=== PATIENT | female | born 1930 | race Caucasian/White ===

== ENCOUNTER → 2016-02-23 | Outpatient (CLI) | payer MEDICARE, MEDICAID ==
[~2016-02-23] MED LIST: AMLO10TA2 PO; ANAS1TAB PO; ATEN100T PO; CEFU1TAB20 PO; ERGO1CAP10 PO; IBUP200C PO; ISOS30TA3 PO; MEDR4PAK PO; POTA10TA15 PO; VALS1TAB65 PO; WARF-20 PO; WARF-23 PO
[2016-02-23 09:58] LABS: AUTOMATED NEUTROPHIL # 5.8 TH/MM3 (1.8-7.7); BASOPHIL % 0.5 % (0.0-2.0); EOSINOPHIL # 0.3 TH/MM3 (0-0.4); EOSINOPHIL % 3.7 % (0.0-4.0); HEMATOCRIT 39.3 % (35.0-46.0); HEMO FLAGS DIFF FINAL; LYMPH % 17.2 % (9.0-44.0); LYMPHOCYTE # 1.5 TH/MM3 (1.0-4.8); MEAN CELL VOLUME 88.1 FL (80.0-100.0); MEAN CORPUSCULAR HEMOGLOBIN 28.8 PG (27.0-34.0); MEAN CORPUSCULAR HGB CONC 32.7 % (32.0-36.0); MONO % 9.4 % (0.0-8.0); NEUT % 69.2 % (16.0-70.0); PLATELET COUNT 206 TH/MM3 (150-450); RED BLOOD COUNT 4.46 MIL/MM3 (4.00-5.30); RED CELL DISTRIBUTION WIDTH 14.9 % (11.6-17.2); WHITE BLOOD COUNT 8.4 TH/MM3 (4.0-11.0)
== END ==
LOC: CPRE 08:40
PROVIDERS: ATTEND Surgery
DX: Z01.812 Encounter for preprocedural laboratory examination (principal); C50.912 Malignant neoplasm of unspecified site of left female breast
CPT/HCPCS: 36415; 85025

== ENCOUNTER → 2016-03-02 | Day surgery (SDC) | payer MEDICARE, OTHER ==
--- NOTE | 2016-02-24 11:58 | MH ---
cc: EDDA SHER DATE OF ADMISSION 02/23/2016 [facility] #[id number] PRINCIPAL DIAGNOSIS Multifocal left breast cancer ATTENDING PHYSICIAN Edda Sher MD HISTORY OF PRESENT ILLNESS The patient is an 85-year-old female with multiple medical problems noted to have an abnormal bilateral diagnostic mammogram at [facility] on January 04, 2016. This was performed for a 2-month history of left bloody nipple discharge and left breast ultrasound demonstrated a 1.2 cm left breast mass at 2 o'clock 7 cm from the nipple and a 6 mm mass at 11 o'clock. The 2 o'clock lesion was classified as BI-RADS five and ultrasound-guided core biopsy demonstrated moderately differentiated invasive ductal carcinoma corresponding to a palpable mass at 2 o'clock which was 1.5 cm. The 6 mm mass at 11 o'clock was not well seen by office imaging and the areolar skin rash was biopsied, but this was negative. She subsequently had a breast MRI on February 03 which demonstrated the known malignancy which was 1.3 cm at 2 o'clock 7 cm from the nipple. There was a second ill-defined enhancing area at 11 o'clock which was 8 mm. There was a third enhancing focus in the lower outer quadrant which was 7 mm and this was indeterminate. There was an ill-defined enhancing focus in the upper outer right breast which was 9 mm and a second smaller enhancing density in the central right breast which was 5 mm. Ultrasound of the right breast was recommended, but the patient did not wish to pursue further workup. She opted for left mastectomy and sentinel lymph node biopsy and now presents for the procedure. Final interpretation of her right breast ultrasound demonstrated no dominant masses with a 4 mm nodular density, but nothing corresponding to the MR findings. MR guided biopsy was recommended but the patient declined. MEDICAL PROBLEMS Include: 1. Coronary artery disease 2. History of congestive heart failure 3. History of pulmonary embolus and deep venous thrombosis. 4. She also has hypertension and a history of a myocardial infarction requiring multiple stents, as well as three-vessel bypass in the distant past. 5. She has had what was described as an mini stroke some years ago, but has no neurologic sequelae. Preoperative cardiac clearance was recommended and the patient was seen by Dr. Crowell who considered her to be low to intermediate risk. PAST SURGERIES Include: 1. Coronary artery bypass graft in 1996 2. Carotid endarterectomy 3. Multiple coronary artery stents 4. Peripheral vascular femoral vessel stents 5. Hysterectomy and bilateral salpingo-oophorectomy in 1962. CURRENT MEDICATIONS 1. Warfarin 4 mg 5 days a week and 4.5 mg 2 days a week 2. Amlodipine 10 mg daily 3. Valsartan 160 mg daily 4. Atenolol 50 mg daily 5. Potassium 10 mg daily 6. Isosorbide 30 mg daily ALLERGIES SHE IS ALLERGIC TO AMOXICILLIN WHICH IS ASSOCIATED WITH A RASH AND SHE HAS ADVERSE DRUG REACTION TO LABETALOL. REPRODUCTIVE HISTORY G4, P4. Menarche age 14, first child age 19, surgical menopause age 32. She has never taken hormone replacement. FAMILY HISTORY Significant for breast cancer in her sister in her early 50s with a second breast cancer which was postmenopausal and she subsequently of metastatic disease. REVIEW OF SYSTEMS A 12-point review of systems was significant for cardiac symptoms and lower extremity edema and shortness of breath with exertion. PHYSICAL EXAMINATION She was 5.6 and weighed 150 pounds with a BMI of 24.4. Blood pressure was 133/83, temperature 97.8, heart rate 104, respirations 16. HEENT: Exam was significant for being edentulous. NECK: The neck was supple with no thyromegaly or cervical adenopathy. She did have mobile left axillary adenopathy. CHEST: Clear throughout. CARDIAC: Exam revealed a 3/6 systolic harsh murmur and irregular heartbeat. BREASTS: Exam revealed fibrocystic changes and asymmetry with the left breast being larger than the right. There was bloody nipple discharge on the left side and a 1.5 cm two o'clock mass 7 cm from the nipple. 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 ABDOMEN: The abdomen was without masses or tenderness and there was a low midline scar. EXTREMITIES: The remainder of her exam was significant for 1+ peripheral edema. IMPRESSION Ms. Hou has clinical stage II left breast cancer with mobile adenopathy and probable multifocal disease. She has opted for breast MRI and despite some indeterminate findings by MR in the right breast, she declined further workup. She will stop her Coumadin prior to surgery and understands the risks and benefits of the procedure. Edda Sher MD CEW/SANDY /11:09 AM /11:46 AM FLORA
[~2016-03-02] VITALS: Ht 167.6 cm; Wt 69.5 kg
[~2016-03-02] MED LIST changes: +ACETAMINOPHEN 1000 MG/100 ML VIAL IV ONE; +ACETAMINOPHEN/HYDROcodone 325 MG/5 MG TAB ONE; +BUPIVACAINE/EPINEPHRINE 0.5% PF 30 ML VIAL ONE; +CLINDAMYCIN PHOS 900 MG/6 ML VIAL ONE; +ISOSULFAN BLUE 50 MG/5 ML VIAL SQ ONE; +LACTATED RINGER'S 1000 ML INJ 1,000 ML ONE; +LIDOCAINE HCL 1% 20 ML VIAL ONE; +METHYLENE BLUE 100 MG/10 ML VIAL ONE; +MIDAZOLAM HCL 2 MG/2 ML VIAL ONE; +ONDANSETRON HCL 4 MG/2 ML VIAL IV PUSH ONE; +ONDANSETRON HCL 4 MG/2 ML VIAL ONE; +PROPOFOL 200 MG/20 ML AMP IV ONE; +SODIUM CHLORIDE 0.9% 20 ML VIAL ONE; +SODIUM CHLORIDE 0.9% INJ 100 ML ONE; -WARF-23 PO; +fentaNYL CITRATE 250 MCG/5 ML AMP ONE
[2016-03-02 07:33] VITALS: BP 115/71; PULSE 75; RESP 20; TEMP 98.6; O2SAT 99
--- NOTE | 2016-03-02 10:54 | RADRPT ---
EXAM DATE/TIME: 03/02/2016 08:35 [facility] COMPARISON: No previous studies available for comparison. INDICATIONS : Breast cancer. MEDICAL HISTORY : Hypertension. Deep venous thrombosis. Breast cancer. SURGICAL HISTORY : Tubal ligation. Hysterectomy. ENCOUNTER: Initial ACUITY: 1 day PAIN SCORE: 2/10 LOCATION: Left breast. AREA EVALUATED: Left breast, upper quadrant; at 2 o'closk Radiopharmaceutical dose: 1 mCi Tc99m [place] colloid FINDINGS: Breast ultrasound was performed prior to lymphoscintigraphy. Subcutaneous injection was made in close proximity to the biopsy-proven breast carcinoma at 2: 00 7 cm from the left nipple. Subdermal injection was made in the same quadrant in the periareolar ti ssues. Delayed imaging was not requested by Dr. Trujillo. CONCLUSION: Successful ultrasound-guided left breast lymphoscintigraphy injections. Edis Estevez MD on March 02, 2016 at 10:51 Board Certified Radiologist. This report was verified electronically.
[2016-03-02 11:36] LABS: PROTHROMBIN TIME - PATIENT 10.5 SEC (9.8-11.6)
[2016-03-02 16:30] VITALS: BP 107/78; PULSE 106; RESP 16; TEMP 97.7; O2SAT 98
--- NOTE | 2016-03-02 20:04 | MP ---
cc: PHIL SHER DATE OF SURGERY 03/02/16 PRINCIPAL DIAGNOSIS Multifocal left breast cancer POSTOPERATIVE DIAGNOSIS Multifocal left breast cancer PROCEDURE PERFORMED Left mastectomy and left axillary sentinel lymph node biopsy with left axillary dissection. SURGEON Mac Sher MD ANESTHESIA General via LMA device. INDICATION The patient is an 85-year-old female with multifocal left breast cancer who now presents for definitive surgical therapy. FINDINGS AT SURGERY Bloody nipple discharge was noted from the left nipple and there was palpable abnormality at 11 o'clock and a second abnormality at 2 o'clock 5 cm from the nipple which did appear to involve the skin. The skin at 2 o'clock was included with the mastectomy specimen. Two sentinel lymph nodes were removed. #1 was not blue and had a count of 25 and #2 was not blue but was suspicious and had a count of one. The first sentinel lymph node was positive by touch prep for metastatic disease. PROCEDURE IN DETAIL After informed consent was obtained and site verification was performed, the patient was brought to the radiology suite where she underwent peritumoral radionuclide injection. She was then brought to the major operating room where she underwent general anesthesia via an LMA device. She was given a single dose of IV clindamycin due to PENICILLIN ALLERGY and sequential compression hose were placed. Three mL of half-strength Lymphazurin were injected in the subareolar left breast and a 5-minute massage was performed. The left breast and arm were then prepped and draped in sterile fashion. 180 mL of tumescent solution mixed with 30 mL of 0.5% Marcaine with epinephrine were then infiltrated circumferentially around the left breast in the plane between the subcutaneous fat and anterior breast fascia. Sharp dissection was then performed in this same plane superiorly to the clavicle, medially to the parasternal area, laterally to the axilla, and inferiorly to the anterior rectus sheath. The breast was then dissected off the pectoralis muscle using electrocautery and the breast was then amputated in the axilla. The specimen was oriented with the skin anterior, one short suture superior, and one long suture lateral. The specimen was sent for permanent pathologic evaluation after being weighed and it was 535 grams. Attention was then turned to the left axilla where there were some palpable low level I lymph nodes. These were circumferentially dissected free from surrounding structures using the harmonic scalpel. [place] lymph node #1 was high in level I and this had a count of 25 and was not blue. The second low level I lymph node had a count of one and touch prep of these two lymph nodes was positive. Some adjacent lymph nodes were also removed using the harmonic scalpel and none of these had any radioactive count. Some additional mid level I lymph nodes were dissected free from surrounding structures using the harmonic scalpel and care was taken to preserve the medial pectoral, the thoracodorsal, and the long thoracic neurovascular bundles as well as the axillary vein. Good hemostasis was noted and a stab wound was created along the anterior axillary line. A drain was placed along the chest wall and secured to the skin with a 3-0 nylon suture. The wound was then closed using interrupted 3-0 Vicryl subcutaneous sutures and a 4-0 Monocryl subcuticular suture. Steri-Strips and a sterile dressing were applied. The patient tolerated the procedure well with an estimated blood loss if 50 mL and she was extubated in the operating room and brought to the recovery room in good condition. All sponge and needle counts were correct at the conclusion of the case. MD CALDERON Amaro/ /2:42 PM /7:54 PM
--- NOTE | 2016-03-03 09:21 | RADRPT ---
EXAM DATE/TIME: 03/02/2016 08:35 [facility] COMPARISON: No previous studies available for comparison. EXTERNAL COMPARISON : [facility], US Breast, Right, February 09, 2016 , MRI Breast, Bilateral, February 04, 2016, US Breast, Left, January 04, 2016. INDICATIONS : Left breast cancer. DOSE: 1.0 mCi Tc99m Sulfur Colloid subcutaneous and subdermal INJECTION SITE: Left Breast MEDICAL HISTORY : Carcinoma, breast. Atrial fibrillation. SURGICAL HISTORY : Tubal ligation. Hysterectomy. Appendectomy. Carotid endartectomy. ENCOUNTER: Initial ACUITY: 4 - 6 months PAIN SCALE: 3/10 LOCATION: Left Breast. TECHNIQUE: Injection(s) of sulfur colloid was performed under sonographic guidance. Static imaging was obtained .. FINDINGS: Imaging confirms activity at the injection site. No sentinel node uptake is confirmed at 30 minutes. CONCLUSION: No sentinel node uptake confirmed at 30 minutes. Edis Estevez MD on March 03, 2016 at 9:11 Board Certified Radiologist. This report was verified electronically.
== END | disposition home or self-care (01) ==
LOC: CSDC 06:50 → EDUNIT# 08:00
PROVIDERS: ATTEND Surgery
DX: C50.812 Malignant neoplasm of overlapping sites of left female breast (principal); C77.3 Secondary and unspecified malignant neoplasm of axilla and upper limb lymph nodes; I50.9 Heart failure, unspecified; E55.9 Vitamin D deficiency, unspecified; I12.9 Hypertensive chronic kidney disease with stage 1 through stage 4 chronic kidney disease, or unspecified chronic kidney disease; N18.3 Chronic kidney disease, stage 3 (moderate); I48.2 Chronic atrial fibrillation; Z86.718 Personal history of other venous thrombosis and embolism; Z79.01 Long term (current) use of anticoagulants; Z01.818 Encounter for other preprocedural examination
CPT/HCPCS: 00400; 19303; 36415; 76642; 78195; 85610; 88307; 88309; 88333; A9541; J0131; J2250; J2405; J3010; J7120; Q9968

== ENCOUNTER 2016-04-15 06:23 | Emergency (ER) | payer MEDICARE, MEDICAID ==
[2016-04-15] VITALS (7 sets, daily range): BP systolic 137–166; BP diastolic 67–89; PULSE 99–118; RESP 18–22; TEMP 98.7; O2SAT 90–99
[~2016-04-15] VITALS: Ht 160 cm; Wt 68.0 kg
[~2016-04-15 06:23] MED LIST changes: -ACETAMINOPHEN 1000 MG/100 ML VIAL IV ONE; -ACETAMINOPHEN/HYDROcodone 325 MG/5 MG TAB ONE; -ANAS1TAB PO; -BUPIVACAINE/EPINEPHRINE 0.5% PF 30 ML VIAL ONE; -CEFU1TAB20 PO; -CLINDAMYCIN PHOS 900 MG/6 ML VIAL ONE; -ISOSULFAN BLUE 50 MG/5 ML VIAL SQ ONE; -LACTATED RINGER'S 1000 ML INJ 1,000 ML ONE; -LIDOCAINE HCL 1% 20 ML VIAL ONE; -MEDR4PAK PO; -METHYLENE BLUE 100 MG/10 ML VIAL ONE; -MIDAZOLAM HCL 2 MG/2 ML VIAL ONE; -ONDANSETRON HCL 4 MG/2 ML VIAL IV PUSH ONE; -ONDANSETRON HCL 4 MG/2 ML VIAL ONE; -PROPOFOL 200 MG/20 ML AMP IV ONE; -SODIUM CHLORIDE 0.9% 20 ML VIAL ONE; -SODIUM CHLORIDE 0.9% INJ 100 ML ONE; -fentaNYL CITRATE 250 MCG/5 ML AMP ONE
[2016-04-15] MEDS ORDERED: ANAS1TAB PO (06:39)
[2016-04-15] MEDS ORDERED: SODIUM CHLOR 0.9% 1000 ML INJ 1,000 ML IV SCH (07:13)
[2016-04-15] MEDS ORDERED: SODIUM CHLORIDE 0.9% FLUSH 5 ML FLUSH IVF PRN (07:15)
--- NOTE | 2016-04-15 07:23 | PD ---
HPI Chief Complaint: GI Complaint Time Seen by Provider: 07:13 Travel History International Travel<30 days: No Contact w/Intl Traveler<30days: No Traveled to known affect area: No History of Present Illness HPI This is an 85-year-old female with a history of breast cancer, status post mastectomy on March 02, who presents today with complaints of nausea, cough and diarrhea. Patient reports that she was started recently on a hormone replacement pill and has been on it for 10 days. She reports that shortly thereafter she started experiencing the symptoms as above. She denies any fevers that she is checked but does state that she's felt warm at times. She denies any chills. She denies any vomiting. She denies any dysuria urgency or frequency. Daughter is at the bedside states she called her oncologist, Dr. Pulido, who told her to stop hormone pills 5 days. She states that she's been off the pills for 2 days now. Patient also reports constant mid to left sided chest pain with radiation to her shoulder blades. She says is constant and does not have any exertional or relieving factors. PFSH Past Medical History Hx Anticoagulant Therapy: Yes (COUMADIN) Cancer: Yes (LEFT BREAST CA) Cardiovascular Problems: Yes (CABGx3/MIx1/MURMUR/AFIB) Cerebrovascular Accident: Yes (TIAx1) Diabetes: No Endocrine: No Genitourinary: No Hepatitis: No Hiatal Hernia: No Hypertension: Yes Immune Disorder: No Musculoskeletal: No Neurologic: Yes (MILD HAND TREMORS) Psychiatric: No Reproductive: No Respiratory: Yes (MILD SHORTNESS OF BREATH ON EXERTION, PE) Thyroid Disease: No Past Surgical History Abdominal Surgery: Yes (APPENDECTOMY) AICD: No Cardiac Surgery: Yes (TRIPLE BYPASS, LEFT CORATID ENDARTECTOMY) Ear Surgery: No Endocrine Surgery: No Eye Surgery: Yes (BILATERAL CATARACTS REMOVAL) Genitourinary Surgery: Yes (RIGHT KIDNEY FIXATED TO RIGHT 10TH RIB) Gynecologic Surgery: Yes (TOTAL HYSTERECTOMY, TUBAL LIGATION) Joint Replacement: No Mastectomy: Yes (left breast ) Oral Surgery: No Pacemaker: No Other Surgery: Yes Social History Alcohol Use: Yes (everyday 3-4 bourbon) Tobacco Use: No Substance Use: No Allergies-Medications (Allergen,Severity, Reaction): Coded Allergies: Amoxicillin (Verified Allergy, Severe, Rash, 04/15/16) Levaquin (Verified Allergy, Severe, Anaphylaxis, 04/15/16) Reported Meds & Prescriptions Reported Meds & Active Scripts Active Medrol Dosepak (Methylprednisolone) 4 Mg Dspk 4 Mg PO DIRECTED Per Pharmacist direction Cefuroxime (Cefuroxime Axetil) 500 Mg Tab 500 Mg PO BID Reported Anastrozole 1 Mg Tab 1 Mg PO DAILY Ibuprofen 200 Mg Cap 200 Mg PO Q6H PRN Warfarin 4 Mg Tab 4 Mg PO M,,W,FR,SA Vitamin D (Ergocalciferol) 50,000 Unit Cap 50,000 Units PO Q7D Potassium Chloride Microencaps 10 Meq Tab 10 Meq PO DAILY Isosorbide Mononitrate ER (Isosorbide Mononitrate) 30 Mg [place] 30 Mg PO DAILY Valsartan 160 Mg Tab 160 Mg PO DAILY Amlodipine (Amlodipine Besylate) 10 Mg Tab 10 Mg PO DAILY Atenolol 100 Mg Tab 100 Mg PO DAILY Warfarin 4 Mg Tab 4.5 Mg PO Review of Systems Except as stated in HPI: all other systems reviewed are Neg General / Constitutional: Positive: Fever, No: Chills (felt warm) HENT: No: Headaches, Lightheadedness Cardiovascular: Positive: Chest Pain or Discomfort, No: Palpitations (left substernal with radiation to the shoulder blade), Irregular Rhythm Respiratory: Positive: Cough, No: Shortness of Breath Gastrointestinal: Positive: Nausea, No: Vomiting, Abdominal Pain Genitourinary: No: Frequency, Dysuria Musculoskeletal: Positive: Weakness (generalized), Pain (HEENT from the chest rating to between shoulder blades) Neurologic: Positive: Weakness, No: Headache (generalized) Physical Exam Narrative GENERAL: Well-developed well-nourished female in no acute respiratory distress. SKIN: Warm and dry. HEAD: Atraumatic. Normocephalic. EYES: No scleral icterus. No injection or drainage. ENT: Mucous membranes pink and slightly dry. NECK: Trachea midline. Supple. CARDIOVASCULAR: Regular rate and rhythm. 4/6 systolic murmur. RESPIRATORY: No accessory muscle use. Bilateral expiratory wheezes in the upper airways GASTROINTESTINAL: Abdomen soft, non-tender, nondistended. MUSCULOSKELETAL: No obvious deformities. No clubbing. No cyanosis. 1+ pretibial edema bilaterally. Patient reports this is chronic NEUROLOGICAL: Awake and alert. No obvious cranial nerve deficits. Motor grossly within normal limits. Normal speech. PSYCHIATRIC: Appropriate mood and affect; insight and judgment normal. Data Data Last Documented VS Vital Signs Date Time Temp Pulse Resp B/P Pulse Ox O2 Delivery O2 Flow Rate FiO2 04/15/16 08:10 112 22 141/67 95 Nasal Cannula 3 04/15/16 06:26 98.7 Orders Complete Blood Count With Diff (04/15/16 07:13) Comprehensive Metabolic Panel (04/15/16 07:13) Lipase (04/15/16 07:13) Urinalysis - C+S If Indicated (04/15/16 07:13) Iv Access Insert/Monitor (04/15/16 07:13) Ecg Monitoring (04/15/16 07:13) Oximetry (04/15/16 07:13) Sodium Chlor 0.9% 1000 Ml Inj (Ns 1000 M (04/15/16 07:13) Sodium Chloride 0.9% Flush (Ns Flush) (04/15/16 07:15) Electrocardiogram (04/15/16 07:13) Chest, Single Ap (04/15/16 07:13) Ckmb (Isoenzyme) Profile (04/15/16 07:13) Troponin I (04/15/16 07:13) Albuterol-Ipratropium Neb (Duoneb Neb) (04/15/16 07:30) Sodium Chlorid 0.9% 500 Ml Inj (Ns 500 M (04/15/16 10:15) Albuterol-Ipratropium Neb (Duoneb Neb) (04/15/16 10:15) Labs Laboratory Tests Test 04/15/16 04/15/16 07:45 08:00 White Blood Count 8.4 TH/MM3 Red Blood Count 4.38 MIL/MM3 Hemoglobin 13.0 GM/DL Hematocrit 38.7 % Mean Corpuscular Volume 88.5 FL Mean Corpuscular Hemoglobin 29.7 PG Mean Corpuscular Hemoglobin 33.6 % Concent Red Cell Distribution Width 14.9 % Platelet Count 184 TH/MM3 Mean Platelet Volume 10.0 FL Neutrophils (%) (Auto) 82.1 % Lymphocytes (%) (Auto) 9.8 % Monocytes (%) (Auto) 7.1 % Eosinophils (%) (Auto) 0.6 % Basophils (%) (Auto) 0.4 % Neutrophils # (Auto) 6.9 TH/MM3 Lymphocytes # (Auto) 0.8 TH/MM3 Monocytes # (Auto) 0.6 TH/MM3 Eosinophils # (Auto) 0.0 TH/MM3 Basophils # (Auto) 0.0 TH/MM3 CBC Comment DIFF FINAL Differential Comment Sodium Level 137 MEQ/L Potassium Level 4.3 MEQ/L Chloride Level 103 MEQ/L Carbon Dioxide Level 26.5 MEQ/L Anion Gap 8 MEQ/L Blood Urea Nitrogen 19 MG/DL Creatinine 1.00 MG/DL Estimat Glomerular Filtration 53 ML/MIN Rate Random Glucose 132 MG/DL Calcium Level 9.2 MG/DL Total Bilirubin 0.4 MG/DL Aspartate Amino Transf 19 U/L (AST/SGOT) Alanine Aminotransferase 12 U/L (ALT/SGPT) Alkaline Phosphatase 76 U/L Total Creatine Kinase 45 U/L Troponin I 0.02 NG/ML Total Protein 7.5 GM/DL Albumin 4.3 GM/DL Lipase 232 U/L Urine Color YELLOW Urine Turbidity HAZY Urine pH 6.0 Urine Specific [place] 1.017 Urine Protein 30 mg/dL Urine Glucose (UA) NEG mg/dL Urine Ketones NEG mg/dL Urine Occult Blood SMALL Urine Nitrite POS Urine Bilirubin NEG Urine Urobilinogen LESS THAN 2.0 MG/DL Urine Leukocyte Esterase NEG Urine RBC 4 /hpf Urine WBC 3 /hpf Urine Squamous Epithelial 1 /hpf Cells Urine Bacteria FEW /hpf Urine Mucus FEW /lpf Microscopic Urinalysis Comment CULT NOT INDICATED MDM Medical Decision Making Medical Screen Exam Complete: Yes Emergency Medical Condition: Yes Medical Record Reviewed: Yes Differential Diagnosis Viral syndrome versus UTI versus pneumonia versus ACS Narrative Course 85-year-old female presents with cough and loose stools and general malaise. The patient was recent started on a hormone therapy pill for her breast cancer. The patient denies any fevers, chills. She does have audible wheezes noted on exam. Chest x-ray shows no acute infiltrate. The patient does have a mild UTI. Given this, she'll be treated with cefuroxime 5 mg twice daily 7 days. She'll also be given a prescription for Medrol Dosepak. They do have a nebulizer at home and she'll be instructed to use that twice daily while she has pulmonary symptoms. She is instructed return if she does any worsening symptoms. She was noted also to be slightly dehydrated here. She's been given 500 cc of IVD fluid. She'll be started to increase her fluid intake to 3 days. Diagnosis Primary Impression: Bronchitis Additional Impressions: UTI (urinary tract infection) Mild dehydration Additional Instructions: Return if feeling worse. Increase fluid by one and half times 2-3 days. Please have Coumadin/INR checked in 1 week. Scripts Methylprednisolone Dosepak (Medrol Dosepak)4 Mg Dspk4 Mg PO DIRECTED #1 DSPK Ref 0 Per Pharmacist direction Prov:Bright Landeros MD 04/15/16 Cefuroxime 500 Mg [id number] Mg PO BID #14 TAB Ref 0 Prov:Bright Landeros MD 04/15/16 Disposition: 01 DISCHARGE HOME Condition: Stable Bright Landeros MD Apr 15, 2016 07:23
[2016-04-15] MEDS: RESP: ALBUTEROL 2.5 MG/IPRATROPIUM 0.5 MG NEB (SCH) INH (07:35)
--- NOTE | 2016-04-15 07:38 | RADRPT ---
EXAM DATE/TIME: 04/15/2016 07:30 [facility] COMPARISON: No previous studies available for comparison. INDICATIONS : Cough and chest pain. MEDICAL HISTORY : Hypertension. Myocardial infarction. Carcinoma, breast. A-Fib. SURGICAL HISTORY : CABG. ENCOUNTER: Initial ACUITY: 3 days PAIN SCORE: 8/10 LOCATION: Bilateral chest FINDINGS: The lungs are clear without infiltrate, nodule, or mass. There is no appreciable pleural effusion fo r technique. Slight cardiomegaly is seen. There is evidence for prior median sternotomy. CONCLUSION: Slight cardiomegaly. Coty Sterling MD on April 15, 2016 at 7:36 Board Certified Radiologist. This report was verified electronically.
[2016-04-15 08:03] LABS: AUTOMATED NEUTROPHIL # 6.9 TH/MM3 (1.8-7.7); BASOPHIL % 0.4 % (0.0-2.0); EOSINOPHIL % 0.6 % (0.0-4.0); HEMATOCRIT 38.7 % (35.0-46.0); HEMO FLAGS DIFF FINAL; LYMPH % 9.8 % (9.0-44.0); LYMPHOCYTE # 0.8 TH/MM3 (1.0-4.8); MEAN CELL VOLUME 88.5 FL (80.0-100.0); MEAN CORPUSCULAR HEMOGLOBIN 29.7 PG (27.0-34.0); MEAN CORPUSCULAR HGB CONC 33.6 % (32.0-36.0); MONO % 7.1 % (0.0-8.0); NEUT % 82.1 % (16.0-70.0); PLATELET COUNT 184 TH/MM3 (150-450); RED BLOOD COUNT 4.38 MIL/MM3 (4.00-5.30); RED CELL DISTRIBUTION WIDTH 14.9 % (11.6-17.2); WHITE BLOOD COUNT 8.4 TH/MM3 (4.0-11.0)
[2016-04-15 08:16] LABS: ALT (GPT) 12 U/L (10-53); ANION GAP 8 MEQ/L (5-15); AST (GOT) 19 U/L (15-37); BICARBONATE 26.5 MEQ/L (21.0-32.0); BLOOD UREA NITROGEN 19 MG/DL (7-18); CHLORIDE 103 MEQ/L (98-107); GLOMERULAR FILTRATION RATE 53 ML/MIN (>89); POTASSIUM 4.3 MEQ/L (3.5-5.1); SODIUM (NA) 137 MEQ/L (136-145)
[2016-04-15 08:19] LABS: BACTERIA, URINE FEW /hpf; BLOOD, URINE SMALL (NEG); COMMENT (UR) CULT NOT INDICATED; CULTURE IF INDICATED CULT NOT INDICATED; GLUCOSE,URINE NEG (NEG); KETONE, URINE NEG (NEG); MUCUS URINE FEW /lpf (OCC); SQUAMOUS EPITHELIAL CELL URINE 1 /hpf (0-5); URINE COLOR YELLOW (YELLW/STRAW)
[2016-04-15 08:20] LABS: ALKALINE PHOSPHATASE 76 U/L (45-117); TOTAL BILIRUBIN ADULT 0.4 MG/DL (0.2-1.0)
[2016-04-15 08:20] LABS: NITRITE,URINE POS (NEG)
[2016-04-15 08:30] LABS: CREATINE KINASE 45 U/L (26-192)
[2016-04-15] MEDS ORDERED: RESP: ALBUTEROL 2.5 MG/IPRATROPIUM 0.5 MG NEB (SCH) NEB ONE (10:15)
[2016-04-15] MEDS ORDERED: SODIUM CHLORID 0.9% 500 ML INJ 500 ML IV ONE (10:15)
[2016-04-15] MEDS ORDERED: CEFU1TAB20 PO (11:12)
[2016-04-15] MEDS ORDERED: MEDR4PAK PO (11:12)
--- NOTE | 2016-04-15 17:19 | EKG ---
Date Performed: 04/15/2016 Time Performed: 07:33:18 PTAGE: 85 years EKG: ATRIAL FIBRILLATION WITH RAPID VENTRICULAR RESPONSE POSSIBLE RIGHT VENTRICULAR CONDUCTION D ELAY SEPTAL MYOCARDIAL INFARCTION ABNORMAL ECG NO PREVIOUS TRACING DOCTOR: Wilma Buenrostro Interpretating Date/Time 04/15/2016 17:15:30
== END 2016-04-15 11:53 | disposition home or self-care (01) ==
LOC: NEPE 06:23
DX: J40 Bronchitis, not specified as acute or chronic (principal); N39.0 Urinary tract infection, site not specified; E86.0 Dehydration; R94.31 Abnormal electrocardiogram [ECG] [EKG]; R07.9 Chest pain, unspecified; I10 Essential (primary) hypertension; R05 Cough; R19.7 Diarrhea, unspecified; I48.91 Unspecified atrial fibrillation; Z79.01 Long term (current) use of anticoagulants; Z79.890 Hormone replacement therapy; Z85.3 Personal history of malignant neoplasm of breast
CPT/HCPCS: 71010; 80053; 81001; 82550; 83690; 84484; 85025; 93005; 94640; 94664; 96360; 99284; J7030; J7040